=== PATIENT | female | born 1980 | race Caucasian/White ===

== ENCOUNTER 2018-12-29 21:43 | Inpatient (IN) | payer OTHER ==
[2018-12-30] MEDS ORDERED: ePHEDrine 50 MG/ML SDV IVPUSH ONE (00:12)
[2018-12-30] MEDS ORDERED: Lactated Ringers 1,000 ML IV ONE (00:12)
[2018-12-30] MEDS ORDERED: Ondansetron 4 MG Tab.DIS PO PRN (01:02)
[2018-12-30] MEDS ORDERED: Sodium Chloride 0.9% 10 ML Syringe FLUSH PRN (01:02)
--- NOTE | 2018-12-30 01:11 | PCM.LDHP ---
L&D History of Present Illness - General Date of Service: 12/30/18 (active labor) Admit Problem/Dx: Patient Status Order with Admit Dx/Problem 12/30/18 01:02 Patient Status [ADT] Routine Admission Diagnosis/Problem Admission Diagnosis/Problem Active labor Source of Information: Patient History Limitations: Reports: No Limitations - History of Present Illness Introduction:: This 38 year old presented in labor about 2200 this evening. FRANCOIS 12/30/18, scan equalled dates at 20 weeks. Healthy . Simpson test negative and baby is a girl. Contractions started yesterday afternoon and slowly became stronger. upon arrival was 2-3 /8-/-1, progressed to a 4 and requested an epidural for pain control. Labs ABO A neg, had Rhogam at 29 weeks Rubella immune GBS neg HIV neg HGB 11.8 PLT 131 Timing/Duration: Reports: minutes: (2-4) Location, : Reports: Abdomen Quality: Reports: Pressure Severity: Moderate Pain Score: 5 Improves with: Reports: None Worsens with: Reports: Movement Associated Symptoms: Reports: vaginal bleeding (bleedy show) - Related Data Allergies/Adverse Reactions: Allergies Allergy/AdvReac Type Severity Reaction Status Date / Time metronidazole Allergy Rash Verified 01/19/16 07:34 Home Medications: Home Meds Multivitamin with Minerals [Multiple Vitamin] 1 tab PO DAILY 05/27/14 [History] Cyclobenzaprine [Flexeril] 10 mg PO TID 01/19/16 [History] Dexamethasone 4 mg PO TID 01/19/16 [History] Past Medical History [employer] History: Reports: : 4 Para: 3 LMP (Approximate): Psychiatric History: Reports: None - Past Surgical History GI Surgical History: Reports: Appendectomy H&P Review of Systems - Review of Systems: Review Of Systems: See Below General: Reports: No Symptoms HEENT: Reports: No Symptoms Pulmonary: Reports: No Symptoms Cardiovascular: Reports: No Symptoms Gastrointestinal: Reports: No Symptoms Genitourinary: Reports: No Symptoms Musculoskeletal: Reports: No Symptoms Skin: Reports: No Symptoms Psychiatric: Reports: No Symptoms Neurological: Reports: No Symptoms Hematologic/Lymphatic: Reports: No Symptoms Immunologic: Reports: No Symptoms L&D Exam - Exam Exam: See Below - Vital Signs Vital Signs: Last Vital Signs Temp 96.6 F 12/29/18 21:51 Pulse 88 12/29/18 21:51 Resp 16 12/29/18 21:51 BP 124/78 12/29/18 21:51 Pulse Ox - OB Specific Fundal Height In cm: 39 Contraction Duration (sec): 40-70 Contraction Frequency (min): 3-4.5 Contraction Intensity: Mild to Moderate Movement: Active Heart Tones: Present Heart Tones per Min: 130 Heart Rate (FHR) Variability: Moderate (6-25 bmp) Presentation: Vertex Estimated Weight: 7-8 pounds - Alexander Score Alexander Score Cervix Position: Midposition Alexander Score Consistency: Soft Alexander Score Effacement: >80% Alexander Score Dilation: 3-4 cm Alexander Score 's Station: -1 ,0 Alexander Score Total: 10 - Exam General: Alert, Oriented HEENT: PERRLA, Mucosa Moist & [place], Posterior Pharynx Clear, Pupils Equal Neck: Supple Lungs: Normal Respiratory Effort Cardiovascular: Regular Rate, Regular Rhythm GI/Abdominal Exam: Soft Rectal Exam: Normal Rectal Tone Genitourinary: Cervical dilitation, Enlarged uterus Back Exam: Normal Inspection Extremities: No Pedal Edema, Normal Capillary Refill Skin: Warm, Dry, Intact Psychiatric: Alert, Normal Affect, Normal Mood - Patient Data Lab Results Last 24 hrs: Laboratory Results - last 24 hr 12/29/18 12/30/18 Range/Units 21:52 00:25 WBC 6.8 (4.5-11.0) K/uL RBC 4.12 (3.30-5.50) M/uL Hgb 11.8 L (12.0-15.0) g/dL Hct 36.0 (36.0-48.0) % MCV 87 (80-98) fL MCH 29 (27-31) pg MCHC 33 (32-36) % Plt Count 131 L (150-400) K/uL Urine Color Yellow Urine Appearance Clear Urine pH 6.0 (4.5-8.0) Ur Specific [place] 1.015 (1.008-1.030) Urine Protein Trace (NEGATIVE) mg/dL Urine Glucose (UA) Normal (NEGATIVE) mg/dL Urine Ketones Negative (NEGATIVE) mg/dL Urine Occult Blood Moderate (NEGATIVE) Urine Nitrite Negative (NEGATIVE) Urine Bilirubin Negative (NEGATIVE) Urine Urobilinogen Normal (NORMAL) mg/dL Ur Leukocyte Esterase Moderate (NEGATIVE) Urine RBC 5-10 H (0-5) Urine WBC 5-10 H (0-5) Ur Epithelial Cells Moderate Amorphous Sediment Not seen Urine Bacteria Moderate Urine Mucus Not seen Result Diagrams: 12/30/18 00:25 - Problem List (1) Active labor at term SNOMED Code(s): 15270025 ICD Code: FWS0147 - Status: Acute Current Visit: Yes (2) SNOMED Code(s): 11276813 ICD Code: Z34.90 - ENCNTR FOR SUPRVSN OF NORMAL , UNSP, UNSP TRIMESTER Status: Acute Current Visit: Yes Qualifiers: Weeks of gestation: 40 weeks Qualified Code(s): Z3A.40 - 40 weeks gestation of Problem List Initiated/Reviewed/Updated: Yes Orders Last 24hrs: Active Orders 24 hr Category Date Time Status Patient Status [ADT] Routine ADT 12/30/18 01:02 Ordered Antiembolic Devices [RC] .Routine Care 12/30/18 01:04 Ordered Communication Order [RC] ASDIRECTED Care 12/30/18 00:13 Active Communication Order [RC] ASDIRECTED Care 12/30/18 01:02 Ordered Heart Tones [RC] PER UNIT ROUTINE Care 12/30/18 01:02 Ordered Non Stress Test [RC] Click to Edit Care 12/30/18 01:02 Ordered Insert Urinary Catheter [OM.PC] ASDIRECTED Care 12/30/18 00:15 Ordered Local Anesthetic Infusion Pump [RC] ASDIRECTED Care 12/30/18 00:12 Active May Shower [RC] ASDIRECTED Care 12/30/18 01:02 Ordered Notify Provider Vital Signs [RC] PRN Care 12/30/18 01:02 Ordered Notify Provider [RC] PRN Care 12/30/18 01:02 Ordered OB Check [OM.PC] Click to Edit Care 12/29/18 21:52 Ordered PCEA Epidural [RC] ASDIRECTED Care 12/30/18 00:12 Active Up ad Chichi [RC] ASDIRECTED Care 12/30/18 01:02 Ordered Urinary Catheter Assessment [RC] ASDIRECTED Care 12/30/18 00:13 Active VTE/DVT Education [RC] Click to Edit Care 12/30/18 01:04 Ordered Vital Signs [RC] PER UNIT ROUTINE Care 12/30/18 01:02 Ordered DRUG SCREEN, URINE [URCHEM] Routine Lab 12/30/18 00:11 Ordered Lactated Ringers [Ringers, Lactated] 1,000 ml Med 12/30/18 00:12 Active IV .BOLUS Ondansetron [Zofran ODT] Med 12/30/18 01:02 Ordered 4 mg PO Q4H PRN Oxytocin/Normal Saline [Pitocin in NS 20 Units/1,000 ML Med 12/30/18 00:15 Active ] 20 unit in 1,000 ml IV TITRATE Sodium Chloride 0.9% [Saline Flush] Med 12/30/18 01:02 Ordered 10 ml FLUSH ASDIRECTED PRN DVT/VTE Prophylaxis Reflex [OM.PC] Routine Oth 12/30/18 01:02 Ordered Epidural Catheter Management [OM.PC] Routine Oth 12/30/18 00:12 Ordered Saline Lock Insert [OM.PC] Routine Oth 12/30/18 01:02 Ordered Resuscitation Status Routine Resus Stat 12/30/18 01:02 Ordered Medication Orders Lactated Ringer's (Ringers, Lactated) 1,000 mls @ 999 mls/hr IV .BOLUS ONE Stop: 12/30/18 01:12 Oxytocin/Sodium Chloride (Pitocin In Ns 20 Units/1,000 Ml) 20 unit in 1,000 mls @ 2,997 mls/hr IV TITRATE ALONZO; Protocol Assessment/Plan Comment:: 12/30/18 39 year old 40 weeks gestation, with active labor at term Pain management per patient request, epidural Anticipate a vaginal delivery
--- NOTE | 2018-12-30 02:14 | ANES ---
DATE OF SERVICE: 12/30/2018 INDICATIONS: A 38-year-old lady in the Obstetrical Department in active labor. I was asked by Radha Conn CNM to place a labor epidural. This is a multiparous lady. She has had epidurals in the past. The one outside of our facility that they had a lot of trouble with. I did her last epidural and had a little bit of issue with it, but it worked quite well at that time. Since that time, she has had a laminectomy at L4-5. She has quite severe degenerative disk disease. The procedure was re-explained to her in detail, all questions were answered and consent was signed. DESCRIPTION OF PROCEDURE: She was placed in the sitting position. Her back was examined. She was prepped with Betadine solution prep. I attempted an epidural at what I believe is L4-5. I was unsuccessful and moved down to where I felt was L5-S1, also unsuccessful, I kept hitting bone, I went up to what I believe is L3-4. This was also unacceptable hitting nothing, but bone. There were approximately 6 attempts, all resulted in touching bone and we decided to terminate this and she will be given nitrous oxide during her labor. I am not going to stick around for that. She basically tolerated the procedure well. Jacob Rivera CRNA /[id number]
[2018-12-30] MEDS ORDERED: Witch Hazel Medicated Pads 100/Jar TOP PRN (03:18)
[2018-12-30] MEDS ORDERED: Benzocaine 20% Top Spray 56 GM Bottle TOP PRN (03:18)
[2018-12-30] MEDS ORDERED: Ibuprofen 200 MG Tab, 24 Tab Bulk Bottle PO PRN (03:18)
[2018-12-30] MEDS ORDERED: Lanolin 100% Cream 40 GM Tube TOP PRN (03:18)
[2018-12-30] MEDS ORDERED: Acetaminophen 325 MG Tab, 50 Tab Bulk Bottle PO PRN (03:18)
--- NOTE | 2018-12-30 03:28 | PCM.DEL ---
<Kylah Elaineie - Last Filed: 12/30/18 03:22> L & D Note - General Info Date of Service: 12/30/18 () Mother's Due Date: 12/30/18 - Delivery Note Labor: Spontaneous Delivery Outcome: Livebirth Delivery Method: Spontaneous Vaginal Delivery-Single Infant Delivery Mode: Spontaneous Presentation: Right Occiput Anterior (LAKSHMI) Nuchal Cord: None Anesthesia Type: Nitrous Oxide Amniotic Fluid Description: Clear Episiotomy Type: None Laceration: 1st Degree Placenta: Intact, Spontaneous Cord: 3 Vessels Estimated Blood Loss: 200 Resuscitation Needed: No : Stimulated, Warmed Provider: Carolyne Conn Score 1 min: 8 Score 5 min: 9 Second Stage Interventions: Reports: Second Nurse Assessed Progress of Descent, Second Nurse Reviewed Contraction Pattern, Second Nurse Reviewed Heart Tones, Pushing Effectively, Pushing, Feet in Foot Rests Delivery Comments (Free Text/Narrative):: 12/30/18 38 yo at 40 0/7 weeks delivered a viable female infant at 0300 in LAKSHMI position after spontaneous labor. Category 1 strip through out. Baby was placed on mothers chest at delivery and was dried and stimulated, delayed cord clamping done, cried spontaneously. Apgars 8, 9. The placenta delivered spontaneously intact with a 3 vessel cords. There is a first degree perineal laceration that is not bleeding and was not repaired. FF with light flow. There are no vaginal or cervical lacerations. EBL 200 mL 1st stage: 4169-1783 2nd stage: 0228-7427 3rd stage: 0820-9315 - General Info Date of Service: 12/30/18 Functional Status: Reports: Pain Controlled - Review of Systems General: Reports: No Symptoms HEENT: Reports: No Symptoms Pulmonary: Reports: No Symptoms Cardiovascular: Reports: No Symptoms Gastrointestinal: Reports: No Symptoms Genitourinary: Reports: No Symptoms Musculoskeletal: Reports: No Symptoms Skin: Reports: No Symptoms Neurological: Reports: No Symptoms Psychiatric: Reports: No Symptoms - Patient Data Vitals - Most Recent: Last Vital Signs Temp 35.9 C 12/29/18 21:51 Pulse 67 12/30/18 02:30 Resp 18 12/30/18 02:30 BP 140/77 12/30/18 02:30 Pulse Ox 99 12/30/18 02:30 Weight - Most Recent: 250 lb I&O - Last 24 Hours: Intake & Output 12/29/18 12/29/18 12/30/18 14:59 22:59 06:59 Intake Total 1000 Balance 1000 Lab Results Last 24 Hours: Laboratory Results - last 24 hr 12/29/18 12/30/18 Range/Units 21:52 00:25 WBC 6.8 (4.5-11.0) K/uL RBC 4.12 (3.30-5.50) M/uL Hgb 11.8 L (12.0-15.0) g/dL Hct 36.0 (36.0-48.0) % MCV 87 (80-98) fL MCH 29 (27-31) pg MCHC 33 (32-36) % Plt Count 131 L (150-400) K/uL Urine Color Yellow Urine Appearance Clear Urine pH 6.0 (4.5-8.0) Ur Specific [place] 1.015 (1.008-1.030) Urine Protein Trace (NEGATIVE) mg/dL Urine Glucose (UA) Normal (NEGATIVE) mg/dL Urine Ketones Negative (NEGATIVE) mg/dL Urine Occult Blood Moderate (NEGATIVE) Urine Nitrite Negative (NEGATIVE) Urine Bilirubin Negative (NEGATIVE) Urine Urobilinogen Normal (NORMAL) mg/dL Ur Leukocyte Esterase Moderate (NEGATIVE) Urine RBC 5-10 H (0-5) Urine WBC 5-10 H (0-5) Ur Epithelial Cells Moderate Amorphous Sediment Not seen Urine Bacteria Moderate Urine Mucus Not seen Med Orders - Current: Current Medications Oxytocin/Sodium Chloride (Pitocin In Ns 20 Units/1,000 Ml) 20 unit in 1,000 mls @ 2,997 mls/hr IV TITRATE ALONZO; Protocol Ondansetron HCl (Zofran Odt) 4 mg PO Q4H PRN PRN Reason: Nausea/Vomiting Sodium Chloride (Saline Flush) 10 ml FLUSH ASDIRECTED PRN PRN Reason: Keep Vein Open Discontinued Medications Ephedrine Sulfate (Ephedrine Sulfate) 5 mg IVPUSH ONETIME ONE Stop: 12/30/18 00:13 Last Admin: 12/30/18 02:34 Dose: Not Given Lactated Ringer's (Ringers, Lactated) 1,000 mls @ 999 mls/hr IV .BOLUS ONE Stop: 12/30/18 01:12 Last Admin: 12/30/18 00:12 Dose: 999 mls/hr - Exam General: Alert, Oriented HEENT: Pupils Equal, Pupils Reactive, EOMI, Mucous Membr. Moist/[place] Neck: Supple Lungs: Clear to Auscultation, Normal Respiratory Effort Cardiovascular: Regular Rate, Regular Rhythm GI/Abdominal Exam: Normal Bowel Sounds, Soft, Non-Tender, No Organomegaly, No Distention, No Abnormal Bruit, No Mass, Pelvis Stable (Female) Exam: Normal External Exam, Cervical Dilatation, Enlarged Uterus, Vaginal Bleeding. No: Vaginal Tears Back Exam: Normal Inspection, Full Range of Motion Extremities: Normal Inspection, Normal Range of Motion, Non-Tender, No Pedal Edema, Normal Capillary Refill Skin: Warm, Dry, Intact Neurological: No New Focal Deficit Psy/Mental Status: Alert, Normal Affect, Normal Mood - Problem List & Annotations (1) Vaginal delivery SNOMED Code(s): 066165318 Code(s): O80 - ENCOUNTER FOR FULL-TERM UNCOMPLICATED DELIVERY Status: Acute Current Visit: Yes (2) First degree perineal laceration during delivery SNOMED Code(s): 205741292 Code(s): O70.0 - FIRST DEGREE PERINEAL LACERATION DURING DELIVERY Status: Acute Current Visit: Yes (3) Intends to breastfeed SNOMED Code(s): 777863597 Code(s): SQW5149 - Status: Acute Current Visit: Yes (4) Rh negative status during SNOMED Code(s): 911821899 Code(s): O26.899 - OTH RELATED CONDITIONS, UNSPECIFIED TRIMESTER; Z67.91 - UNSPECIFIED BLOOD TYPE, RH NEGATIVE Status: Acute Current Visit: Yes - Problem List Review Problem List Initiated/Reviewed/Updated: Yes - My Orders Last 24 Hours: My Active Orders 12/30/18 03:18 Patient Status [ADT] Routine Vital Signs [RC] PFP Acetaminophen [Tylenol Bulk Bottle] 325 mg PO Q4H PRN Benzocaine [Nowy-S-Mksnder 20% [place]] See Dose Instructions TOP Q4H PRN Ibuprofen [Motrin Bulk Bottle] 600 mg PO Q6H PRN Lanolin [Lansinoh HPA] 1 gm TOP ASDIRECTED PRN Witch Melissa [Tucks] 1 pad TOP ASDIRECTED PRN Assess Lochia [WOMSER] Per Unit Routine Assess Uterine Involution [WOMSER] Per Unit Routine Breast Pump [WOMSER] Per Unit Routine 12/30/18 03:19 Perineal Care [OM.PC] Per Unit Routine Sitz Bath [OM.PC] Per Unit Routine 12/30/18 03:20 Ice Therapy [OM.PC] Per Unit Routine Peripheral IV Discontinue [OM.PC] Routine 12/30/18 05:11 CBC W/O DIFF,HEMOGRAM [HEME] AM 12/30/18 Breakfast Regular Diet [DIET] - Assessment Assessment:: 12/30/18 38 yo with at 40 0/7 weeks First degree perineal laceration without repair FF, bleeding light Rh negative GBS neg - Plan Plan:: 12/30/18 39 year old 40 weeks gestation, with active labor at term Pain management per patient request, epidural Anticipate a vaginal delivery 12/30/18 Routine cares Cord blood workup for Rhogam need support Plan for 24-48 hour stay <Carolyne Conn - Last Filed: 12/30/18 03:42> - Patient Data Vitals - Most Recent: Last Vital Signs Temp 96.6 F 12/29/18 21:51 Pulse 67 12/30/18 02:30 Resp 18 12/30/18 02:30 BP 140/77 12/30/18 02:30 Pulse Ox 99 12/30/18 02:30 I&O - Last 24 Hours: Intake & Output 12/29/18 12/29/18 12/30/18 14:59 22:59 06:59 Intake Total 1000 Balance 1000 Lab Results Last 24 Hours: Laboratory Results - last 24 hr 12/29/18 12/30/18 Range/Units 21:52 00:25 WBC 6.8 (4.5-11.0) K/uL RBC 4.12 (3.30-5.50) M/uL Hgb 11.8 L (12.0-15.0) g/dL Hct 36.0 (36.0-48.0) % MCV 87 (80-98) fL MCH 29 (27-31) pg MCHC 33 (32-36) % Plt Count 131 L (150-400) K/uL Urine Color Yellow Urine Appearance Clear Urine pH 6.0 (4.5-8.0) Ur Specific [place] 1.015 (1.008-1.030) Urine Protein Trace (NEGATIVE) mg/dL Urine Glucose (UA) Normal (NEGATIVE) mg/dL Urine Ketones Negative (NEGATIVE) mg/dL Urine Occult Blood Moderate (NEGATIVE) Urine Nitrite Negative (NEGATIVE) Urine Bilirubin Negative (NEGATIVE) Urine Urobilinogen Normal (NORMAL) mg/dL Ur Leukocyte Esterase Moderate (NEGATIVE) Urine RBC 5-10 H (0-5) Urine WBC 5-10 H (0-5) Ur Epithelial Cells Moderate Amorphous Sediment Not seen Urine Bacteria Moderate Urine Mucus Not seen Med Orders - Current: Current Medications Acetaminophen (Tylenol Bulk Bottle) 325 mg PO Q4H PRN PRN Reason: Pain Benzocaine (Eglv-G-Ahfl[place] 20% [place]) 0 gm TOP Q4H PRN PRN Reason: Perineal Comfort Measure Emollient Ointment (Lansinoh Hpa) 1 gm TOP ASDIRECTED PRN PRN Reason: Sore Nipples Oxytocin/Sodium Chloride (Pitocin In Ns 20 Units/1,000 Ml) 20 unit in 1,000 mls @ 2,997 mls/hr IV TITRATE ALONZO; Protocol Ibuprofen (Motrin Bulk Bottle) 600 mg PO Q6H PRN PRN Reason: Pain Ondansetron HCl (Zofran Odt) 4 mg PO Q4H PRN PRN Reason: Nausea/Vomiting Sodium Chloride (Saline Flush) 10 ml FLUSH ASDIRECTED PRN PRN Reason: Keep Vein Open Witmarly Torres (Tucks) 1 pad TOP ASDIRECTED PRN PRN Reason: Hemorrhoids Discontinued Medications Ephedrine Sulfate (Ephedrine Sulfate) 5 mg IVPUSH ONETIME ONE Stop: 12/30/18 00:13 Last Admin: 12/30/18 02:34 Dose: Not Given Lactated Ringer's (Ringers, Lactated) 1,000 mls @ 999 mls/hr IV .BOLUS ONE Stop: 12/30/18 01:12 Last Admin: 12/30/18 00:12 Dose: 999 mls/hr - Problem List & Annotations (1) Active labor at term SNOMED Code(s): 60633235 Code(s): DQD4236 - Status: Acute Current Visit: Yes (2) SNOMED Code(s): 14486901 Code(s): Z34.90 - ENCNTR FOR SUPRVSN OF NORMAL , UNSP, UNSP TRIMESTER Status: Acute Current Visit: Yes Qualifiers: Weeks of gestation: 40 weeks Qualified Code(s): Z3A.40 - 40 weeks gestation of - My Orders Last 24 Hours: My Active Orders 12/29/18 21:52 OB Check [OM.PC] Click To Edit 12/30/18 00:11 DRUG SCREEN, URINE [URCHEM] Routine 12/30/18 00:12 Epidural Catheter Management [OM.PC] Routine 12/30/18 00:15 Insert Urinary Catheter [OM.PC] ASDIRECTED Oxytocin/Normal Saline [Pitocin in NS 20 Units/1,000 ML] 20 unit in 1,000 ml IV TITRATE 12/30/18 01:02 Patient Status [ADT] Routine Communication Order [RC] ASDIRECTED Non Stress Test [RC] Click to Edit May Shower [RC] ASDIRECTED Notify Provider Vital Signs [RC] PRN Notify Provider [RC] PRN Up ad Chichi [RC] ASDIRECTED Vital Signs [RC] PER UNIT ROUTINE Ondansetron [Zofran ODT] 4 mg PO Q4H PRN Sodium Chloride 0.9% [Saline Flush] 10 ml FLUSH ASDIRECTED PRN DVT/VTE Prophylaxis Reflex [OM.PC] Routine Saline Lock Insert [OM.PC] Routine Resuscitation Status Routine 12/30/18 01:04 Antiembolic Devices [RC] .Routine VTE/DVT Education [RC] Click to Edit 12/30/18 01:40 Communication Order [RC] Per Unit Routine Communication Order [RC] Per Unit Routine Communication Order [RC] Per Unit Routine Nitrous Oxide Delivery [RC] ASDIRECTED Oxygen Therapy [RC] ASDIRECTED Pulse Oximetry [RC] ASDIRECTED Verify Patient Consent Obtain [RC] ASDIRECTED - Plan Plan:: I personally performed or re-performed the physical examination and medical decision making. I have verified all student documentation or findings, including history, physical exam and/or medical decision making.Carolyne Conn APRN, KIRBY, CFNP
--- NOTE | 2018-12-31 07:55 | PCM.PNPP ---
<Kylah Elaineie - Last Filed: 12/31/18 07:52> - General Info Date of Service: 12/31/18 (Discharge ) Functional Status: Reports: Pain Controlled - Review of Systems General: Reports: No Symptoms HEENT: Reports: No Symptoms Pulmonary: Reports: No Symptoms Cardiovascular: Reports: No Symptoms Gastrointestinal: Reports: No Symptoms Genitourinary: Reports: No Symptoms Musculoskeletal: Reports: No Symptoms Skin: Reports: No Symptoms Neurological: Reports: No Symptoms Psychiatric: Reports: No Symptoms - General Info Date of Service: 12/31/18 - Patient Data Vital Signs - Most Recent: Last Vital Signs Temp 35.3 C 12/30/18 23:28 Pulse 60 12/30/18 23:28 Resp 16 12/30/18 23:28 BP 106/60 12/30/18 23:28 Pulse Ox 98 12/30/18 23:28 Weight - Most Recent: 250 lb Med Orders - Current: Current Medications Acetaminophen (Tylenol Bulk Bottle) 325 mg PO Q4H PRN PRN Reason: Pain Last Admin: 12/30/18 03:42 Dose: 325 mg Benzocaine ([id number] 20% Gonzales) 0 gm TOP Q4H PRN PRN Reason: Perineal Comfort Measure Emollient Ointment (Lansinoh Hpa) 1 gm TOP ASDIRECTED PRN PRN Reason: Sore Nipples Oxytocin/Sodium Chloride (Pitocin In Ns 20 Units/1,000 Ml) 20 unit in 1,000 mls @ 2,997 mls/hr IV TITRATE ALONZO; Protocol Ibuprofen (Motrin Bulk Bottle) 600 mg PO Q6H PRN PRN Reason: Pain Last Admin: 12/30/18 03:42 Dose: 600 mg Ondansetron HCl (Zofran Odt) 4 mg PO Q4H PRN PRN Reason: Nausea/Vomiting Sodium Chloride (Saline Flush) 10 ml FLUSH ASDIRECTED PRN PRN Reason: Keep Vein Open Witmarly Melissa (Tucks) 1 pad TOP ASDIRECTED PRN PRN Reason: Hemorrhoids Discontinued Medications Ephedrine Sulfate (Ephedrine Sulfate) 5 mg IVPUSH ONETIME ONE Stop: 12/30/18 00:13 Last Admin: 12/30/18 02:34 Dose: Not Given Lactated Ringer's (Ringers, Lactated) 1,000 mls @ 999 mls/hr IV .BOLUS ONE Stop: 12/30/18 01:12 Last Admin: 12/30/18 00:12 Dose: 999 mls/hr - Infant Interaction Disposition, : [place] in Room with Family Interaction: Holding Infant Feeding: Breastfed ; Nursed Well Support Person: - Recovery Exam Fundal Tone: Firm Fundal Level: At Umbilicus Fundal Placement: Midline Lochia Amount: Moderate Lochia Color: Rubra/Red Perineum Description: Intact, Minimal Bruising/Swelling Other Perinuem Description: denies pain or soreness. Episiotomy/Laceration: None Bladder Status: Nonpalpable Urinary Elimination: Voided - Exam General: Alert, Oriented HEENT: Pupils Equal, Pupils Reactive Neck: Supple Lungs: Clear to Auscultation, Normal Respiratory Effort Cardiovascular: Regular Rate, Regular Rhythm GI/Abdominal Exam: Normal Bowel Sounds, Soft, Non-Tender Extremities: Normal Inspection, Normal Range of Motion, Non-Tender, No Pedal Edema Skin: Warm, Dry, Intact Wound/Incisions: Healing Well Neurological: No New Focal Deficit Psy/Mental Status: Alert, Normal Affect, Normal Mood - Problem List & Annotations (1) Vaginal delivery SNOMED Code(s): 560856791 Code(s): O80 - ENCOUNTER FOR FULL-TERM UNCOMPLICATED DELIVERY Status: Acute Current Visit: Yes (2) First degree perineal laceration during delivery SNOMED Code(s): 774492549 Code(s): O70.0 - FIRST DEGREE PERINEAL LACERATION DURING DELIVERY Status: Acute Current Visit: Yes (3) Intends to breastfeed SNOMED Code(s): 026361058 Code(s): [id number] - Status: Acute Current Visit: Yes (4) Rh negative status during SNOMED Code(s): 058273809 Code(s): O26.899 - OTH RELATED CONDITIONS, UNSPECIFIED TRIMESTER; Z67.91 - UNSPECIFIED BLOOD TYPE, RH NEGATIVE Status: Acute Current Visit: Yes - Problem List Review Problem List Initiated/Reviewed/Updated: Yes - My Orders Last 24 Hours: My Active Orders 12/30/18 Breakfast Regular Diet [DIET] 12/31/18 07:52 Ready for Discharge [RC] PER UNIT ROUTINE - Assessment Assessment:: 12/30/18 38 yo with at 40 0/7 weeks First degree perineal laceration without repair FF, bleeding light Rh negative GBS neg 12/31/18 38 yo Doing well, no complications FF, bleeding light Perineal tear healing nicely Received rhogam well established - Plan Plan:: I personally performed or re-performed the physical examination and medical decision making. I have verified all student documentation or findings, including history, physical exam and/or medical decision making.Carolyne Conn APRN, CNM, HÉCTOR --- 12/31/18 Discharge home today 6 week check <Carolyne Conn - Last Filed: 12/31/18 08:24> - Patient Data Vital Signs - Most Recent: Last Vital Signs Temp 97.4 F 12/31/18 07:54 Pulse 88 12/31/18 07:54 Resp 18 12/31/18 07:54 BP 132/77 12/31/18 07:54 Pulse Ox 99 12/31/18 07:54 Med Orders - Current: Current Medications Acetaminophen (Tylenol Bulk Bottle) 325 mg PO Q4H PRN PRN Reason: Pain Last Admin: 12/30/18 03:42 Dose: 325 mg Benzocaine ([id number] 20% Gonzales) 0 gm TOP Q4H PRN PRN Reason: Perineal Comfort Measure Emollient Ointment (Lansinoh Hpa) 1 gm TOP ASDIRECTED PRN PRN Reason: Sore Nipples Oxytocin/Sodium Chloride (Pitocin In Ns 20 Units/1,000 Ml) 20 unit in 1,000 mls @ 2,997 mls/hr IV TITRATE ALONZO; Protocol Ibuprofen (Motrin Bulk Bottle) 600 mg PO Q6H PRN PRN Reason: Pain Last Admin: 12/30/18 03:42 Dose: 600 mg Ondansetron HCl (Zofran Odt) 4 mg PO Q4H PRN PRN Reason: Nausea/Vomiting Sodium Chloride (Saline Flush) 10 ml FLUSH ASDIRECTED PRN PRN Reason: Keep Vein Open Witmarly Hendersonel (Tucks) 1 pad TOP ASDIRECTED PRN PRN Reason: Hemorrhoids Discontinued Medications Ephedrine Sulfate (Ephedrine Sulfate) 5 mg IVPUSH ONETIME ONE Stop: 12/30/18 00:13 Last Admin: 12/30/18 02:34 Dose: Not Given Lactated Ringer's (Ringers, Lactated) 1,000 mls @ 999 mls/hr IV .BOLUS ONE Stop: 12/30/18 01:12 Last Admin: 12/30/18 00:12 Dose: 999 mls/hr - Problem List & Annotations (1) Active labor at term SNOMED Code(s): 03592256 Code(s): [id number] - Status: Acute Current Visit: Yes (2) SNOMED Code(s): 02989256 Code(s): Z34.90 - ENCNTR FOR SUPRVSN OF NORMAL , UNSP, UNSP TRIMESTER Status: Acute Current Visit: Yes Qualifiers: Weeks of gestation: 40 weeks Qualified Code(s): Z3A.40 - 40 weeks gestation of - Plan Plan:: I personally performed or re-performed the physical examination and medical decision making. I have verified all student documentation or findings, including history, physical exam and/or medical decision making.Carolyne Conn APRN, KIRBY, CFNP
[2018-12-31 07:56] VITALS: BP 132/77
== END 2018-12-31 11:30 | disposition home or self-care (01) | DRG 807 ==
LOC: JP.OBCHECK 21:43 → JP.OB 12-30 00:15 → OBSVTOIN 12-30 03:00 → JP.MS 12-30 10:44
PROVIDERS: ADMIT Nurse Practitioner Family; ATTEND Nurse Practitioner Family
PROC: 10E0XZZ Delivery of Products of Conception, External Approach (ICD-10-PCS; principal; 2018-12-30)
PROC: 00JU3ZZ Inspection of Spinal Canal, Percutaneous Approach (ICD-10-PCS; 2018-12-30)
PROC: 3E0334Z Introduction of Serum, Toxoid and Vaccine into Peripheral Vein, Percutaneous Approach (ICD-10-PCS; 2018-12-30)
DX: O70.0 First degree perineal laceration during delivery (principal); Z37.0 Single live birth; O36.0990 Maternal care for other rhesus isoimmunization, unspecified trimester, not applicable or unspecified; Z3A.40 40 weeks gestation of pregnancy; Z67.91 Unspecified blood type, Rh negative; Z88.8 Allergy status to other drugs, medicaments and biological substances
CPT/HCPCS: 36415; 59409; 80305-QW; 81001; 85027; 85460; 86850; 86900; 86901; 99211; A9270-GY; J2790; J7120

== ENCOUNTER 2023-03-04 09:48 | Emergency (ER) | payer OTHER ==
[2023-03-04] MEDS ORDERED: Ibuprofen 400 MG Tab PO ONE (10:28)
[2023-03-04 12:04] VITALS: BP 121/73; PULSE 79
== END 2023-03-04 11:30 | disposition home or self-care (01) ==
LOC: JP.ED 09:48
DX: S92.355A Nondisplaced fracture of fifth metatarsal bone, left foot, initial encounter for closed fracture (principal); Z88.8 Allergy status to other drugs, medicaments and biological substances; X50.1XXA Overexertion from prolonged static or awkward postures, initial encounter
CPT/HCPCS: 73630; 99283; A9270